=== PATIENT | male | born 1940 | race Caucasian/White ===

== ENCOUNTER → 2018-01-04 | Outpatient (CLI) | payer MEDICARE ==
[2018-01-04 11:05] LABS: BASO % 0.4 % (0.0-1.0); EOS # 0.1 10^3/uL (0.0-0.50); HEMATOCRIT 38.9 % (42.0-52.0); HEMOGLOBIN 13.2 g/dl (14.0-18.0); IMMATURE GRANULOCYTE % 0.2 % (0-3.0); LYMPH # 0.6 10^3/uL (1.5-4.5); LYMPH % 13.2 % (24.0-44.0); MEAN CORPUSCULAR HEMOGLOBIN 30.7 pg (27.0-33.0); MEAN CORPUSCULAR HGB CONC 33.9 g/dl (32.0-36.5); MEAN CORPUSCULAR VOLUME 90.5 fl (80.0-96.0); MONO # 0.5 10^3/uL (0.0-0.8); MONO % 10.6 % (0.0-5.0); NEUTROPHILS # 3.4 10^3/uL (1.8-7.7); NEUTROPHILS % 73.6 % (36.0-66.0); PLATELET COUNT, AUTOMATED 167 10^3/uL (150-450); RED CELL DISTRIBUTION WIDTH 14.6 % (11.5-14.5); WHITE BLOOD COUNT 4.6 10^3/uL (4.0-10.0)
[2018-01-04 11:13] LABS: APPEARANCE, URINE CLEAR (CLEAR); BACTERIA, URINE AUTO NEGATIVE (NEGATIVE); BILIRUBIN, URINE AUTO NEGATIVE (NEGATIVE); BLOOD, URINE BLOOD NEGATIVE (NEGATIVE); COLOR, URINE YELLOW (YELLOW); GLUCOSE, URINE (UA) AUTO NEGATIVE (NEGATIVE); KETONE, URINE AUTO NEGATIVE (NEGATIVE); LEUKOCYTE ESTERASE, URINE AUTO NEGATIVE (NEGATIVE); NITRITE, URINE AUTO NEGATIVE (NEGATIVE); PROTEIN, URINE AUTO NEGATIVE (NEGATIVE); RBC, URINE AUTO 1 /HPF (0-3); SQUAMOUS EPITHELIAL CELL UR AU 0 /HPF (0-6); UROBILINOGEN, URINE AUTO 0.2 mg/dL (0.0-2.0); WBC, URINE AUTO 0 /HPF (0-3)
[2018-01-04 11:33] LABS: ALBUMIN 3.8 GM/DL (3.2-5.2); ALBUMIN/GLOBULIN RATIO 1.03 (1.00-1.93); ALKALINE PHOSPHATASE 59 U/L (45-117); ALT/SGPT 23 U/L (12-78); ANION GAP 7 MEQ/L (8-16); AST/SGOT 28 U/L (7-37); BILIRUBIN,TOTAL 0.4 MG/DL (0.2-1.0); BLOOD UREA NITROGEN 15 MG/DL (7-18); CALCIUM LEVEL 8.7 MG/DL (8.8-10.2); CARBON DIOXIDE LEVEL 27 MEQ/L (21-32); CHLORIDE LEVEL 108 MEQ/L (98-107); CHOLESTEROL LEVEL 103 MG/DL (<200); CHOLESTEROL RISK RATIO 2.452 (<5); CPK CREATINE PHOSPHOKINASE 78 U/L (39-308); CREATININE FOR GFR 0.92 MG/DL (0.70-1.30); FREE T4 1.04 NG/DL (0.76-1.46); GLOMERULAR FILTRATION RATE > 60.0 (>42); GLUCOSE, FASTING 107 MG/DL (70-100); HDL CHOLESTEROL 42 MG/DL (>40); LDL CHOLESTEROL 52.8 MG/DL (<100); NON-HDL-C 61 MG/DL; POTASSIUM SERUM 4.2 MEQ/L (3.5-5.1); SODIUM LEVEL 142 MEQ/L (136-145); TOTAL PROTEIN 7.5 GM/DL (6.4-8.2); TRIGLYCERIDES LEVEL 41 MG/DL (<150)
[2018-01-04 11:39] LABS: CREATININE, URINE 82.5 MG/DL; MALB URINE SIEMENS < 5.0 MG/L
[2018-01-04 11:45] LABS: ESTIMATED AVERAGE GLUCOSE 117 MG/DL (60-110); HEMOGLOBIN A1c 5.7 %
== END ==
LOC: M WUC 09:42
DX: E78.5 Hyperlipidemia, unspecified (principal); R73.9 Hyperglycemia, unspecified; K21.9 Gastro-esophageal reflux disease without esophagitis
CPT/HCPCS: 82550

== ENCOUNTER 2018-02-06 09:20 | Day surgery (SDC) | payer MEDICARE ==
[2018-02-06] MEDS: NS 1,000 ML IV ×2 (10:00)
[2018-02-06] MEDS ORDERED: PROPOFOL 200 MG/20 ML VIAL As Ordered ×2 (10:59)
[2018-02-06] MEDS ORDERED: LIDOCAINE 2% INJ 100 MG/5 ML SDV (FOR ANES.) As Ordered ×2 (10:59)
== END 2018-02-06 12:04 | disposition home or self-care (01) ==
LOC: M OPP 09:20
DX: Z12.11 Encounter for screening for malignant neoplasm of colon (principal); Z86.010 Personal history of colon polyps; D12.0 Benign neoplasm of cecum; K64.8 Other hemorrhoids; K57.30 Diverticulosis of large intestine without perforation or abscess without bleeding; R10.13 Epigastric pain; R11.0 Nausea; K21.9 Gastro-esophageal reflux disease without esophagitis; K29.70 Gastritis, unspecified, without bleeding; E78.5 Hyperlipidemia, unspecified; M19.90 Unspecified osteoarthritis, unspecified site; R06.83 Snoring; F41.9 Anxiety disorder, unspecified; F32.9 Major depressive disorder, single episode, unspecified; Z85.46 Personal history of malignant neoplasm of prostate; Z96.652 Presence of left artificial knee joint; F17.210 Nicotine dependence, cigarettes, uncomplicated; Z88.0 Allergy status to penicillin; Z79.82 Long term (current) use of aspirin; Z79.899 Other long term (current) drug therapy; Z80.9 Family history of malignant neoplasm, unspecified
CPT/HCPCS: 45385

== ENCOUNTER 2021-03-19 10:51 | Emergency (ER) | payer MEDICARE ==
[~2021-03-19] VITALS: Ht 182.9 cm; Wt 79.8 kg
[~2021-03-19 10:51] MED LIST: ASPI81TA86 PO; ATOR80TA59 PO; HYDR-3363 PO; LORA0.5T5 PO; MULT1TAB8 PO; OMEP1CAP73 PO; SERT50TA29 PO; VITATAB11 PO; VITATAB64 PO
--- NOTE | 2021-03-19 11:56 | REP ---
INDICATION: FALL/PAIN COMPARISON: 07/03/2011 TECHNIQUE: Internal rotation, external rotation, and Y view. 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 No evidence for acute fracture or dislocation of the shoulder. Minimally displaced fractures along the posterior aspect of the 3rd and 4th ribs identified.. IMPRESSION: 1. Posterior right 3rd and 4th rib fractures. 2. Shoulder demonstrates arthritic changes without acute fracture or dislocation. <Electronically signed by Ti Cisneros > 03/19/21 [id number]
--- NOTE | 2021-03-19 11:59 | REP ---
INDICATION: FALL/PAIN COMPARISON: None. TECHNIQUE: Frontal view of the chest with four views of the right hemithorax. FINDINGS: Mildly displaced posterior right 3rd and 4th rib fractures are identified. Mildly displaced lateral right 5th and 6th rib fractures are also identified. Frontal view of the chest demonstrates no consolidation/contusion and no definite pneumothorax. IMPRESSION: Multiple mildly displaced right rib fractures. No obvious pulmonary consolidation/contusion, effusion, or definite pneumothorax. <Electronically signed by Ti Cisneros > 03/19/21 [id number]
[2021-03-19] MEDS ORDERED: PERC5TAB12 PO (12:34)
[2021-03-19] MEDS ORDERED: PERCOCET 5MG/325MG TAB PO ONE (12:35)
[2021-03-19 12:40] VITALS: BP 152/69
--- NOTE | 2021-03-20 07:46 | ED PDOC ---
Post-Departure Follow-Up dr bishop faxed formal report of rib films for fu Spike Dumont MD Mar 20, 2021 07:45
== END 2021-03-19 12:54 | disposition home or self-care (01) ==
LOC: M ED 10:51
DX: S22.41XA Multiple fractures of ribs, right side, initial encounter for closed fracture (principal); W07.XXXA Fall from chair, initial encounter; Y92.9 Unspecified place or not applicable; Y93.9 Activity, unspecified; Y99.9 Unspecified external cause status; I10 Essential (primary) hypertension; K21.9 Gastro-esophageal reflux disease without esophagitis; F17.200 Nicotine dependence, unspecified, uncomplicated; Z79.82 Long term (current) use of aspirin; Z88.0 Allergy status to penicillin; Z79.899 Other long term (current) drug therapy

== ENCOUNTER 2022-06-24 12:28 | Emergency (ER) | payer MEDICARE ==
[~2022-06-24] VITALS: Ht 182.9 cm; Wt 80.7 kg
[~2022-06-24 12:28] MED LIST changes: +PERC5TAB12 PO
[2022-06-24] MEDS ORDERED: methylPREDNISolone 125MG 2ML VIAL IM ONE (13:45)
[2022-06-24] MEDS ORDERED: PRED20TA PO (13:45)
[2022-06-24 14:45] VITALS: BP 113/70
== END 2022-06-24 14:45 | disposition home or self-care (01) ==
LOC: M ED 12:28
DX: R21 Rash and other nonspecific skin eruption (principal)
CPT/HCPCS: 96372; 99283; J2930

== ENCOUNTER → 2023-10-28 | Outpatient (REF) | payer MEDICARE, BC ==
[~2023-10-28] MED LIST changes: +ASPI-655 PO; +FERR240T PO; +LORA1TAB23 PO; +PRED20TA PO; +VITA500045 PO
== END ==
LOC: M LAB REF 10-27 13:24
PROVIDERS: ATTEND Internal Medicine Medical Oncology
DX: R77.9 Abnormality of plasma protein, unspecified (principal)

== ENCOUNTER → 2023-12-11 | Outpatient (CLI) | payer MEDICARE ==
[~2023-12-11] MED LIST changes: +ATIV1TAB10 PO; +B-12100010 PO; +PROHANCE 279.3MG/ML 15ML VIAL As Ordered ONE
== END ==
LOC: M RAD 13:36
PROVIDERS: ATTEND Specialist
DX: J32.9 Chronic sinusitis, unspecified (principal)
CPT/HCPCS: 70553; A9576

== ENCOUNTER 2024-01-14 06:15 | Day surgery (SDC) | payer MEDICARE ==
[~2024-01-14] VITALS: Ht 182.9 cm; Wt 68.1 kg
[~2024-01-14 06:15] MED LIST changes: -PROHANCE 279.3MG/ML 15ML VIAL As Ordered ONE
[2024-01-14] MEDS ORDERED: LR 1,000 ML IV SCH ×4 (06:25→09:25)
[2024-01-14] MEDS ORDERED: propofoL 200 MG/20 ML VIAL As Ordered ONE (07:17)
[2024-01-14] MEDS ORDERED: LIDOCAINE 2% 100MG/5ML SDV (FOR ANES.) As Ordered ONE (07:17)
[2024-01-14] MEDS ORDERED: ONDANSETRON 4MG 2ML VIAL As Ordered ONE (07:18)
[2024-01-14] MEDS ORDERED: ROCURONIUM BROMIDE 50MG/5ML VIAL As Ordered ONE (07:18)
[2024-01-14] MEDS ORDERED: ACETAMINOPHEN 1000MG 100ML IV BAG As Ordered ONE (07:19)
[2024-01-14] MEDS ORDERED: fentaNYL 100 MCG/2 ML INJECTION As Ordered ONE (07:20)
[2024-01-14] MEDS ORDERED: SUGAMMADEX SODIUM 500 MG/5 ML VIAL (BRIDION) As Ordered ONE (07:52)
[2024-01-14] MEDS ORDERED: METOCLOPRAMIDE INJ 10MG/2ML VIAL IV PRN (08:10)
[2024-01-14] MEDS ORDERED: diphenhydrAMINE 50MG/ML VIAL IV PRN (08:10)
[2024-01-14] MEDS ORDERED: ONDANSETRON 4MG 2ML VIAL IV PRN (08:10)
[2024-01-14] MEDS ORDERED: fentaNYL 100 MCG/2 ML INJECTION IV PRN (08:10)
[2024-01-14] MEDS ORDERED: oxyCODONE 5MG TAB PO PRN (08:10)
[2024-01-14] MEDS ORDERED: HYDROMORPHONE HCL 0.5 MG/ 0.5 ML SYRINGE IV PRN (08:10)
[2024-01-14] MEDS ORDERED: MEPERIDINE 25 MG/ML 1ML VIAL IV PRN (08:10)
[2024-01-14 08:55] VITALS: BP 148/70; TEMP 97.2; O2SAT 94
[2024-01-14] MEDS ORDERED: HYDROcodone/APAP LIQUID 7.5-325MG 15ML UDC (LORTAB ELIXIR) PO PRN (09:25)
== END 2024-01-14 09:20 | disposition home or self-care (01) ==
LOC: M SDC 06:15
PROVIDERS: ATTEND Otolaryngology
DX: C32.1 Malignant neoplasm of supraglottis (principal); F17.218 Nicotine dependence, cigarettes, with other nicotine-induced disorders; I10 Essential (primary) hypertension; E78.5 Hyperlipidemia, unspecified; K21.9 Gastro-esophageal reflux disease without esophagitis; D64.9 Anemia, unspecified; F41.9 Anxiety disorder, unspecified; F32.A Depression, unspecified; Z85.46 Personal history of malignant neoplasm of prostate; Z79.899 Other long term (current) drug therapy; Z79.82 Long term (current) use of aspirin; Z88.0 Allergy status to penicillin
CPT/HCPCS: 31536; 88305; J0131; J1100; J2405; J3010

== ENCOUNTER → 2024-02-14 | Day surgery (SDC) | payer MEDICARE ==
[~2024-02-14] VITALS: Ht 182.9 cm; Wt 68.4 kg
[~2024-02-14] MED LIST changes: +LIDOCAINE 2% 100MG/5ML SDV (FOR ANES.) As Ordered ONE; +LR 1,000 ML IV SCH; +ceFAZolin SOD 2 GM in IV 1 EA IV ONE; +fentaNYL 100 MCG/2 ML INJECTION As Ordered ONE; +propofoL 200 MG/20 ML VIAL As Ordered ONE
[2024-02-14 11:39] VITALS: BP 150/78; TEMP 97.4; O2SAT 98
== END | disposition home or self-care (01) ==
LOC: M SDC 11:04
PROVIDERS: ATTEND Surgery
DX: Z53.09 Procedure and treatment not carried out because of other contraindication (principal)

== ENCOUNTER → 2024-03-10 | Outpatient (CLI) | payer MEDICARE ==
[~2024-03-10] MED LIST changes: +LIDOCAINE 1% MDV 20ML VIAL As Ordered ONE; -LIDOCAINE 2% 100MG/5ML SDV (FOR ANES.) As Ordered ONE; -LR 1,000 ML IV SCH; -ceFAZolin SOD 2 GM in IV 1 EA IV ONE; -fentaNYL 100 MCG/2 ML INJECTION As Ordered ONE; -propofoL 200 MG/20 ML VIAL As Ordered ONE
[2024-03-10 11:05] VITALS: TEMP 97.5
[2024-03-10 11:46] LABS: BASO % 0.5 % (0.0-1.0); EOS # 0.3 10^3/uL (0.0-0.5); EOS % 3.9 % (0.0-3.0); HEMOGLOBIN 9.9 g/dl (13.5-17.5); LYMPH # 0.5 10^3/uL (1.5-5.0); LYMPH % 7.5 % (24.0-44.0); MEAN CORPUSCULAR HEMOGLOBIN 29.7 pg (27.0-33.0); MEAN CORPUSCULAR VOLUME 90.1 fl (80.0-96.0); MONO # 0.7 10^3/uL (0.0-0.8); MONO % 11.3 % (2.0-8.0); NEUTROPHILS # 4.9 10^3/uL (1.5-8.5); NEUTROPHILS % 76.3 % (36.0-66.0); PLATELET COUNT, AUTOMATED 179 10^3/uL (150-450); RED BLOOD COUNT 3.33 10^6/uL (4.30-6.10); WHITE BLOOD COUNT 6.4 10^3/uL (4.0-10.0)
[2024-03-10 12:32] VITALS: BP 151/84; O2SAT 95
== END ==
LOC: M IRPRO 10:53
PROVIDERS: ATTEND Specialist
DX: C85.90 Non-Hodgkin lymphoma, unspecified, unspecified site (principal)

== ENCOUNTER → 2024-05-08 | Outpatient (CLI) | payer MEDICARE ==
[~2024-05-08] MED LIST changes: +GASTROGRAFIN SOLUTION 30ML As Ordered ONE; +ISOVUE-370 76% 100ML VIAL As Ordered ONE; -LIDOCAINE 1% MDV 20ML VIAL As Ordered ONE
== END ==
LOC: M RAD 12:13
PROVIDERS: ATTEND Specialist
DX: C85.90 Non-Hodgkin lymphoma, unspecified, unspecified site (principal); R91.8 Other nonspecific abnormal finding of lung field; J98.11 Atelectasis; I71.43 Infrarenal abdominal aortic aneurysm, without rupture; R19.09 Other intra-abdominal and pelvic swelling, mass and lump
CPT/HCPCS: 71260; 74177; Q9963; Q9967

== ENCOUNTER 2024-05-31 18:53 | Inpatient (IN) | payer MEDICARE ==
[~2024-05-31] VITALS: Ht 175.3 cm; Wt 67.4 kg
[~2024-05-31 18:53] MED LIST changes: -GASTROGRAFIN SOLUTION 30ML As Ordered ONE; -ISOVUE-370 76% 100ML VIAL As Ordered ONE; +PRED50TA PO
[2024-05-31 19:40] LABS: VENOUS BASE EXCESS -2.2 (-2.0-2.0); VENOUS HCO3 20.7 MMOL/L (23.0-27.0); VENOUS O2 SATURATION 84.9 % (60.0-80.0); VENOUS PARTIAL PRESSURE O2 46.8 mmHg (30.0-50.0); VENOUS PH 7.471 UNITS (7.330-7.430); VENOUS STANDARD HCO3 22.5 MMOL/L; VENOUS TOTAL CO2 21.6 MMOL/L (24.0-28.0)
[2024-05-31] MEDS: ACETAMINOPHEN TAB 650MG DOSE (2X325MG) PO ONE (19:48)
[2024-05-31 19:50] LABS: BASO % 0.2 % (0.0-1.0); EOS % 0.1 % (0.0-3.0); HEMOGLOBIN 9.4 g/dl (13.5-17.5); LYMPH # 0.2 10^3/uL (1.5-5.0); LYMPH % 1.4 % (24.0-44.0); MEAN CORPUSCULAR HEMOGLOBIN 29.7 pg (27.0-33.0); MEAN CORPUSCULAR HGB CONC 33.6 g/dl (32.0-36.5); MEAN CORPUSCULAR VOLUME 88.6 fl (80.0-96.0); MONO # 1.4 10^3/uL (0.0-0.8); MONO % 11.7 % (2.0-8.0); NEUTROPHILS # 10.4 10^3/uL (1.5-8.5); NEUTROPHILS % 85.7 % (36.0-66.0); PLATELET COUNT, AUTOMATED 162 10^3/uL (150-450); RED BLOOD COUNT 3.16 10^6/uL (4.30-6.10); WHITE BLOOD COUNT 12.2 10^3/uL (4.0-10.0)
[2024-05-31] MEDS: LevoFLOXacin IV 750 MG in IV 1 EA IV ONE (19:52)
[2024-05-31 20:11] LABS: THYROID STIMULATING HORMONE 4.077 uIU/ML (0.55-4.78)
[2024-05-31 20:17] LABS: ALBUMIN 2.4 G/DL (3.2-5.2); BILIRUBIN,DIRECT 0.1 MG/DL (<0.4); BILIRUBIN,TOTAL 0.4 MG/DL (0.3-1.2); CALCIUM LEVEL 8.9 MG/DL (8.3-10.6); CREATININE FOR GFR 1.41 MG/DL (0.70-1.30); GLOMERULAR FILTRATION RATE 51.4 (>35); POTASSIUM SERUM 4.1 MMOL/L (3.5-5.1); TOTAL PROTEIN 5.9 G/DL (5.7-8.2)
[2024-05-31] MEDS: NS 2,100 ML in IV 1 EA IV ONE (21:02)
[2024-05-31] MEDS ORDERED: ASPI81TA26 PO (23:05)
[2024-05-31] MEDS ORDERED: HOME MED LIST COMPLETE! XX SCH (23:10)
[2024-05-31 23:34] LABS: PROCALCITONIN 0.2 ng/ml
[2024-06-01] VITALS (9 sets, daily range): BP systolic 90–137; BP diastolic 42–65; TEMP 97.1–102; O2SAT 93–97
[2024-06-01] MEDS: ACETAMINOPHEN TAB 650MG DOSE (2X325MG) PO PRN (01:31)
[2024-06-01] MEDS: NS 1,000 ML IV SCH (01:41)
[2024-06-01 06:10] LABS: HEMOGLOBIN 8.9 g/dl (13.5-17.5); MEAN CORPUSCULAR HGB CONC 31.8 g/dl (32.0-36.5); MEAN CORPUSCULAR VOLUME 91.2 fl (80.0-96.0); PLATELET COUNT, AUTOMATED 170 10^3/uL (150-450); RED BLOOD COUNT 3.07 10^6/uL (4.30-6.10); WHITE BLOOD COUNT 10.7 10^3/uL (4.0-10.0)
[2024-06-01] MEDS: HEPARIN SOD (PORCINE) 5000UNITS/ML 1ML VIAL/SYRINGE SC SCH (06:22)
[2024-06-01 06:43] LABS: ALBUMIN 1.9 G/DL (3.2-5.2); BILIRUBIN,TOTAL 0.3 MG/DL (0.3-1.2); CALCIUM LEVEL 7.9 MG/DL (8.3-10.6); CREATININE FOR GFR 1.4 MG/DL (0.70-1.30); GLOMERULAR FILTRATION RATE 51.8 (>35); TOTAL PROTEIN 5.2 G/DL (5.7-8.2)
[2024-06-01] MEDS: DOCUSATE SODIUM 100MG CAPSULE PO SCH (09:00)
[2024-06-01] MEDS: ASPIRIN 81MG ENTERIC TABLET PO SCH (09:00)
[2024-06-01] MEDS ORDERED: LORazepam 0.5 MG TAB PO PRN (10:40)
[2024-06-01] MEDS: ATORVASTATIN 20 MG TAB PO SCH (12:09)
[2024-06-01] MEDS: SERTRALINE HCL 50 MG TAB PO SCH (12:10)
[2024-06-01] MEDS: OMEPRAZOLE 20MG CAP PO SCH (12:10)
[2024-06-01] MEDS: NICOTINE 21MG/24HR 1 EA TRANSDERMAL TD PRN (12:11)
[2024-06-01] MEDS: MOM 30ML SUSPENSION UDC PO PRN (12:11)
[2024-06-01] MEDS: NS 1,000 ML IV ONE (12:22)
[2024-06-01 13:44] LABS: MAGNESIUM LEVEL 1.8 MG/DL (1.8-2.4)
[2024-06-01] MEDS ORDERED: LevoFLOXacin IV 750 MG in IV 1 EA IV SCH (20:00)
[2024-06-01] MEDS: MEGESTROL 40MG TAB PO SCH (23:52)
[2024-06-02] VITALS (9 sets, daily range): BP systolic 102–149; BP diastolic 55–73; TEMP 99–101.2; O2SAT 93–99
[2024-06-02] MEDS: MAG SULF 1GM/100ML (MAG RUN) 1 GM in IV 1 EA IV ONE (02:20)
[2024-06-02] MEDS: MEGESTROL 400MG 10ML SUSP ORAL SYRINGE *DRAW UP EXACT DOSE PO SCH (12:42)
[2024-06-02 15:28] LABS: BASO % 0.2 % (0.0-1.0); EOS % 0.2 % (0.0-3.0); HEMATOCRIT 27.5 % (42.0-52.0); HEMOGLOBIN 9.1 g/dl (13.5-17.5); LYMPH # 0.3 10^3/uL (1.5-5.0); LYMPH % 2.8 % (24.0-44.0); MEAN CORPUSCULAR HEMOGLOBIN 29.7 pg (27.0-33.0); MEAN CORPUSCULAR HGB CONC 33.1 g/dl (32.0-36.5); MEAN CORPUSCULAR VOLUME 89.9 fl (80.0-96.0); MONO # 0.9 10^3/uL (0.0-0.8); MONO % 9.2 % (2.0-8.0); NEUTROPHILS # 8.1 10^3/uL (1.5-8.5); NEUTROPHILS % 86.7 % (36.0-66.0); PLATELET COUNT, AUTOMATED 192 10^3/uL (150-450); RED BLOOD COUNT 3.06 10^6/uL (4.30-6.10); WHITE BLOOD COUNT 9.3 10^3/uL (4.0-10.0)
[2024-06-02 15:56] LABS: BLOOD UREA NITROGEN 17 MG/DL (9-23); CALCIUM LEVEL 8.3 MG/DL (8.3-10.6); CARBON DIOXIDE LEVEL 19 MMOL/L (20-31); CHLORIDE LEVEL 106 MMOL/L (98-107); GLOMERULAR FILTRATION RATE > 60.0 (>35); GLUCOSE, FASTING 119 MG/DL (74-106); POTASSIUM SERUM 4.1 MMOL/L (3.5-5.1); SODIUM LEVEL 132 MMOL/L (136-145)
[2024-06-02] MEDS ORDERED: LevoFLOXacin IV 750 MG in IV 1 EA IV SCH (20:00)
[2024-06-02] MEDS: LevoFLOXacin 750 MG TABLET PO SCH (20:48)
[2024-06-03 03:07] VITALS: BP 115/65; TEMP 97.1; O2SAT 95
[2024-06-03 08:20] VITALS: BP 137/70; TEMP 98.4; O2SAT 95
[2024-06-03 12:02] VITALS: BP 116/58; TEMP 99.6; O2SAT 95
[2024-06-03 16:07] VITALS: BP 121/69; TEMP 99.1; O2SAT 94
[2024-06-03 16:51] VITALS: BP 136/76; TEMP 97.3; O2SAT 95
[2024-06-03 19:26] VITALS: BP 127/73; TEMP 100; O2SAT 94
[2024-06-04 00:09] VITALS: BP 131/72; TEMP 99.1; O2SAT 93
[2024-06-04 04:00] VITALS: BP 112/62; TEMP 98.9; O2SAT 92
[2024-06-04 06:08] LABS: BASO % 0.1 % (0.0-1.0); EOS % 0.3 % (0.0-3.0); HEMATOCRIT 28.1 % (42.0-52.0); HEMOGLOBIN 9.2 g/dl (13.5-17.5); LYMPH # 0.3 10^3/uL (1.5-5.0); LYMPH % 2.9 % (24.0-44.0); MEAN CORPUSCULAR HEMOGLOBIN 29.2 pg (27.0-33.0); MEAN CORPUSCULAR HGB CONC 32.7 g/dl (32.0-36.5); MEAN CORPUSCULAR VOLUME 89.2 fl (80.0-96.0); MONO # 0.9 10^3/uL (0.0-0.8); NEUTROPHILS # 7.7 10^3/uL (1.5-8.5); NEUTROPHILS % 85.8 % (36.0-66.0); PLATELET COUNT, AUTOMATED 219 10^3/uL (150-450); RED BLOOD COUNT 3.15 10^6/uL (4.30-6.10); WHITE BLOOD COUNT 8.9 10^3/uL (4.0-10.0)
[2024-06-04 06:28] LABS: CALCIUM LEVEL 8.2 MG/DL (8.3-10.6); CREATININE FOR GFR 1.25 MG/DL (0.70-1.30); MAGNESIUM LEVEL 1.8 MG/DL (1.8-2.4); POTASSIUM SERUM 3.7 MMOL/L (3.5-5.1)
[2024-06-04] MEDS ORDERED: LEVO1TAB40 PO (11:12)
[2024-06-04] MEDS ORDERED: PROBCAP14 PO (11:18)
[2024-06-04 12:00] VITALS: BP 115/66; TEMP 98.7; O2SAT 94
== END 2024-06-04 13:22 | disposition home health service (06) | DRG 872 ==
LOC: M ED 18:53 → EDBD 18:53 → M ED INP 22:53 → M PCU 06-01 00:18 → M MSPAV 06-03 16:50
PROVIDERS: ADMIT Family Medicine; ATTEND Student in an Organized Health Care Education/Training Program
DX: A41.9 Sepsis, unspecified organism (principal); C85.90 Non-Hodgkin lymphoma, unspecified, unspecified site; N39.0 Urinary tract infection, site not specified; E78.5 Hyperlipidemia, unspecified; F32.A Depression, unspecified; N18.9 Chronic kidney disease, unspecified; K21.9 Gastro-esophageal reflux disease without esophagitis; F17.210 Nicotine dependence, cigarettes, uncomplicated; F41.9 Anxiety disorder, unspecified; I12.9 Hypertensive chronic kidney disease with stage 1 through stage 4 chronic kidney disease, or unspecified chronic kidney disease; R54 Age-related physical debility; B96.29 Other Escherichia coli [E. coli] as the cause of diseases classified elsewhere; Z88.0 Allergy status to penicillin; Z79.899 Other long term (current) drug therapy; Z79.82 Long term (current) use of aspirin

== ENCOUNTER 2024-07-08 06:05 | Inpatient (IN) | payer MEDICARE ==
[~2024-07-08] VITALS: Ht 182.9 cm; Wt 62.2 kg
[2024-07-08] VITALS (29 sets, daily range): BP systolic 115–130; BP diastolic 61–72; TEMP 98.1–101.7; O2SAT 54–100
[~2024-07-08 06:05] MED LIST changes: +ASPI81TA26 PO; +LEVO1TAB40 PO; +ONDA-84 PO; +PROBCAP14 PO; +PROC10TA5 PO
[2024-07-08] MEDS: ASPIRIN 300 MG SUPP PR ONE (06:25)
[2024-07-08] MEDS: ACETAMINOPHEN *IV* 1,000 MG in IV 1 EA IV ONE (06:25)
[2024-07-08] MEDS: cefTRIAXone SOD 2 GM in D5W MINI-BAG PLUS 50 ML IV ONE (06:30)
[2024-07-08] MEDS: NS 1,000 ML IV ONE (06:30)
[2024-07-08] MEDS: NS 1,000 ML in IV 1 EA IV ONE (06:35)
[2024-07-08 07:10] LABS: BASO % 1.2 % (0.0-1.0); EOS % 2.4 % (0.0-3.0); HEMATOCRIT 29.9 % (42.0-52.0); HEMOGLOBIN 9.7 g/dl (13.5-17.5); LYMPH # 0.1 10^3/uL (1.5-5.0); LYMPH % 9.6 % (24.0-44.0); MEAN CORPUSCULAR HEMOGLOBIN 29.5 pg (27.0-33.0); MEAN CORPUSCULAR HGB CONC 32.4 g/dl (32.0-36.5); MEAN CORPUSCULAR VOLUME 90.9 fl (80.0-96.0); MONO % 2.4 % (2.0-8.0); NEUTROPHILS % 83.2 % (36.0-66.0); PLATELET COUNT, AUTOMATED 175 10^3/uL (150-450); RED BLOOD COUNT 3.29 10^6/uL (4.30-6.10)
[2024-07-08 07:26] LABS: PROCALCITONIN 0.44 ng/ml
[2024-07-08 07:28] LABS: ALBUMIN 2.9 G/DL (3.2-5.2); BILIRUBIN,DIRECT 0.2 MG/DL (<0.4); BILIRUBIN,TOTAL 0.5 MG/DL (0.3-1.2); CALCIUM LEVEL 9.6 MG/DL (8.3-10.6); CREATININE FOR GFR 1.39 MG/DL (0.70-1.30); GLOMERULAR FILTRATION RATE 52.2 (>35); TOTAL PROTEIN 6.6 G/DL (5.7-8.2)
[2024-07-08 07:30] LABS: NEUTROPHILS # 0.7 10^3/uL (1.5-8.5)
[2024-07-08 07:32] LABS: WHITE BLOOD COUNT 0.8 10^3/uL (4.0-10.0)
[2024-07-08] MEDS ORDERED: ONDA-84 PO (07:52)
[2024-07-08] MEDS ORDERED: VITA1CAP25 PO (07:52)
[2024-07-08] MEDS ORDERED: ATIV1TAB10 PO (07:52)
[2024-07-08] MEDS ORDERED: PROC10TA5 PO (07:52)
[2024-07-08] MEDS ORDERED: FERR32TA PO (07:52)
[2024-07-08] MEDS ORDERED: HOME MED LIST COMPLETE! XX SCH (07:55)
[2024-07-08] MEDS ORDERED: ISOVUE-370 76% 100ML VIAL As Ordered ONE (07:58)
[2024-07-08] MEDS ORDERED: MEROPENEM INJ 2 GM in NS 100 ML IV STA (09:58)
[2024-07-08] MEDS: LR 1,000 ML IV ONE (10:37)
[2024-07-08] MEDS: MEROPENEM INJ 1 GM in IV 1 EA IV ONE ×2 (10:37→12:13)
[2024-07-08] MEDS: CEFTAROLINE FOSAMIL 600 MG in D5W MINI-BAG PLUS 50 ML IV STA (11:09)
[2024-07-08] MEDS ORDERED: LORazepam 2 MG/ML 1ML VIAL As Ordered ONE (11:54)
[2024-07-08] MEDS: LORazepam 2 MG/ML 1ML VIAL IM STA (11:59)
[2024-07-08 12:12] LABS: ABG BASE EXCESS -8.2 (-2.0-2.0); ABG HCO3 16.9 MMOL/L (22.0-26.0); ABG O2 SATURATION 99.3 % (95.0-99.0); ABG PARTIAL PRESSURE CO2 32.8 mmHg (35.0-45.0); ABG PARTIAL PRESSURE O2 239.5 mmHg (75.0-100.0); ABG STANDARD HCO3 17.9 MMOL/L. (22.0-26.0); ABG TOTAL CO2 17.9 MMOL/L (23.0-31.0); ABG pH (ARTERIAL) 7.329 UNITS (7.350-7.450)
[2024-07-08] MEDS: ONDANSETRON 4MG 2ML VIAL IV ONE (12:13)
[2024-07-08] MEDS: LORazepam 2 MG/ML 1ML VIAL IV STA ×2 (12:30→12:39)
[2024-07-08] MEDS: levETIRAcetam INJection 1,000 MG in D5W 100 ML IV ONE (12:30)
[2024-07-08] MEDS ORDERED: PHENYTOIN IV ONE (12:30)
[2024-07-08] MEDS ORDERED: NS IV ONE (12:30)
[2024-07-08] MEDS ORDERED: LORazepam 2 MG/ML 1ML VIAL IM STA ×2 (12:30→12:39)
[2024-07-08] MEDS ORDERED: diazePAM 10MG/2ML SYRINGE As Ordered ONE (12:40)
[2024-07-08] MEDS: diazePAM 10MG/2ML SYRINGE IV ONE (12:41)
[2024-07-08 20:08] LABS: VENOUS BASE EXCESS -9.6 (-2.0-2.0); VENOUS HCO3 21.5 MMOL/L (23.0-27.0); VENOUS O2 SATURATION 80.1 % (60.0-80.0); VENOUS PARTIAL PRESSURE CO2 76.9 mmHg (38.0-50.0); VENOUS PARTIAL PRESSURE O2 61.8 mmHg (30.0-50.0); VENOUS PH 7.064 UNITS (7.330-7.430); VENOUS STANDARD HCO3 16.5 MMOL/L; VENOUS TOTAL CO2 23.8 MMOL/L (24.0-28.0)
[2024-07-08] MEDS: CEFTAROLINE FOSAMIL 600 MG in D5W MINI-BAG PLUS 50 ML IV SCH (20:15)
[2024-07-08] MEDS ORDERED: MEROPENEM INJ 2 GM in NS 100 ML IV SCH (21:00)
[2024-07-08] MEDS: MEROPENEM INJ 1 GM in IV 1 EA IV SCH ×2 (22:11→22:49)
[2024-07-08 22:59] LABS: VENOUS BASE EXCESS -4.6 (-2.0-2.0); VENOUS O2 SATURATION 65.2 % (60.0-80.0); VENOUS PARTIAL PRESSURE CO2 62.5 mmHg (38.0-50.0); VENOUS PARTIAL PRESSURE O2 39.5 mmHg (30.0-50.0); VENOUS PH 7.203 UNITS (7.330-7.430); VENOUS STANDARD HCO3 20.1 MMOL/L
[2024-07-09] VITALS (23 sets, daily range): BP systolic 88–126; BP diastolic 52–66; TEMP 97.5–100.6; O2SAT 96–100
[2024-07-09] MEDS: LACTATED RINGER'S 1000 ML IV ONE (04:03)
[2024-07-09 04:41] LABS: HEMOGLOBIN 9.9 g/dl (13.5-17.5); MEAN CORPUSCULAR HEMOGLOBIN 29.6 pg (27.0-33.0); MEAN CORPUSCULAR HGB CONC 31.9 g/dl (32.0-36.5); MEAN CORPUSCULAR VOLUME 92.8 fl (80.0-96.0); PLATELET COUNT, AUTOMATED 138 10^3/uL (150-450); RED BLOOD COUNT 3.34 10^6/uL (4.30-6.10)
[2024-07-09] MEDS: LR 1,000 ML IV ONE (04:44)
[2024-07-09 05:26] LABS: ALBUMIN 2.4 G/DL (3.2-5.2); BILIRUBIN,TOTAL 0.4 MG/DL (0.3-1.2); CALCIUM LEVEL 8.9 MG/DL (8.3-10.6); CREATININE FOR GFR 1.4 MG/DL (0.70-1.30); GLOMERULAR FILTRATION RATE 51.8 (>35); MAGNESIUM LEVEL 1.8 MG/DL (1.8-2.4); PHOSPHORUS LEVEL 5.6 MG/DL (2.4-5.1); POTASSIUM SERUM 3.5 MMOL/L (3.5-5.1); TOTAL PROTEIN 6.1 G/DL (5.7-8.2)
[2024-07-09 05:35] LABS: ANISOCYTOSIS 2+; ATYPICAL LYMPH 3 % (0-5); LYMPHOCYTES 19 % (16-44); METAMYELOCYTES 2 % (0-0); MONOCYTES 16 % (0-5); NEUTROPHILS 51 % (28-66); OVALOCYTES 1+; PLATELET ESTIMATE NORMAL (NORMAL); TEAR DROP CELLS 1+
[2024-07-09] MEDS ORDERED: GLUCAGON INJ 1MG VIAL SC PRN (06:15)
[2024-07-09] MEDS ORDERED: GLUCOSE 4 GM CHEW PO PRN (06:15)
[2024-07-09 09:54] LABS: VENOUS BASE EXCESS -5.6 (-2.0-2.0); VENOUS HCO3 21.6 MMOL/L (23.0-27.0); VENOUS O2 SATURATION 54.5 % (60.0-80.0); VENOUS PARTIAL PRESSURE CO2 49.6 mmHg (38.0-50.0); VENOUS PARTIAL PRESSURE O2 33.4 mmHg (30.0-50.0); VENOUS PH 7.257 UNITS (7.330-7.430); VENOUS STANDARD HCO3 19.1 MMOL/L; VENOUS TOTAL CO2 23.1 MMOL/L (24.0-28.0)
[2024-07-09] MEDS: LR 1,000 ML IV SCH (11:23)
[2024-07-09] MEDS: D5W/LR 1,000 ML IV ONE (12:14)
[2024-07-09] MEDS: DEXTROSE 50% 50ML SYRINGE IV PRN (12:14)
[2024-07-09] MEDS ORDERED: PANTOPRAZOLE 40MG VIAL IV SCH (16:40)
[2024-07-09] MEDS: cefTRIAXone SOD 2 GM in D5W MINI-BAG PLUS 50 ML IV SCH (17:35)
[2024-07-09 19:56] LABS: VENOUS BASE EXCESS -1.5 (-2.0-2.0); VENOUS HCO3 21.6 MMOL/L (23.0-27.0); VENOUS O2 SATURATION 98.6 % (60.0-80.0); VENOUS PARTIAL PRESSURE CO2 30.9 mmHg (38.0-50.0); VENOUS PARTIAL PRESSURE O2 137.7 mmHg (30.0-50.0); VENOUS PH 7.462 UNITS (7.330-7.430); VENOUS STANDARD HCO3 23.2 MMOL/L; VENOUS TOTAL CO2 22.5 MMOL/L (24.0-28.0)
[2024-07-09] MEDS: PANTOPRAZOLE 40MG VIAL IV SCH (20:09)
[2024-07-09] MEDS: HEPARIN SOD (PORCINE) 5000UNITS/ML 1ML VIAL/SYRINGE SQ SCH (20:09)
[2024-07-09 21:39] LABS: IMMUNOGLOBULIN A 174.9 MG/DL (40-350); IMMUNOGLOBULIN G 923 MG/DL (650-1600)
[2024-07-10] VITALS (19 sets, daily range): BP systolic 105–131; BP diastolic 57–78; TEMP 99.7–100.6; O2SAT 92–100
[2024-07-10 04:35] LABS: HEMATOCRIT 27.8 % (42.0-52.0); HEMOGLOBIN 9.3 g/dl (13.5-17.5); MEAN CORPUSCULAR HEMOGLOBIN 29.5 pg (27.0-33.0); MEAN CORPUSCULAR HGB CONC 33.5 g/dl (32.0-36.5); MEAN CORPUSCULAR VOLUME 88.3 fl (80.0-96.0); PLATELET COUNT, AUTOMATED 102 10^3/uL (150-450); RED BLOOD COUNT 3.15 10^6/uL (4.30-6.10); WHITE BLOOD COUNT 5.5 10^3/uL (4.0-10.0)
[2024-07-10 05:00] LABS: BILIRUBIN,TOTAL 0.4 MG/DL (0.3-1.2); CALCIUM LEVEL 8.8 MG/DL (8.3-10.6); CREATININE FOR GFR 1.32 MG/DL (0.70-1.30); GLOMERULAR FILTRATION RATE 55.4 (>35); MAGNESIUM LEVEL 1.9 MG/DL (1.8-2.4); PHOSPHORUS LEVEL 4.2 MG/DL (2.4-5.1); POTASSIUM SERUM 3.3 MMOL/L (3.5-5.1); TOTAL PROTEIN 5.5 G/DL (5.7-8.2)
[2024-07-10 05:24] LABS: ANISOCYTOSIS 2+; ATYPICAL LYMPH 3 % (0-5); LYMPHOCYTES 8 % (16-44); METAMYELOCYTES 4 % (0-0); MONOCYTES 15 % (0-5); MYELOCYTES 1 % (0-0); NEUTROPHILS 67 % (28-66)
[2024-07-10 05:25] LABS: PLATELET ESTIMATE DECREASED (NORMAL); TOXIC GRANULATION 1+
[2024-07-10 05:26] LABS: OVALOCYTES 1+; TEAR DROP CELLS 1+
[2024-07-10] MEDS: KCL 10MEQ/100ML SWI (KRUN) 10 MEQ in IV 1 EA IV ONE (06:08)
[2024-07-10] MEDS: cefTRIAXone SOD 2 GM in D5W MINI-BAG PLUS 50 ML IV SCH (06:08)
[2024-07-10 12:52] LABS: CALCIUM LEVEL 8.8 MG/DL (8.3-10.6); CREATININE FOR GFR 1.29 MG/DL (0.70-1.30); GLOMERULAR FILTRATION RATE 56.9 (>35); POTASSIUM SERUM 3.2 MMOL/L (3.5-5.1)
[2024-07-11] VITALS (24 sets, daily range): BP systolic 111–141; BP diastolic 55–81; TEMP 99.9–100.8; O2SAT 93–98
[2024-07-11] MEDS: FAT EMULSION IV 250 ML IV ONE ×2 (02:07→18:54)
[2024-07-11] MEDS: AMINO AC/ELECTROLYTE/DEX/CALC 1,000 ML IV SCH (02:07)
[2024-07-11 04:38] LABS: BASO % 0.2 % (0.0-1.0); HEMATOCRIT 27.2 % (42.0-52.0); HEMOGLOBIN 8.9 g/dl (13.5-17.5); LYMPH # 0.2 10^3/uL (1.5-5.0); LYMPH % 2.2 % (24.0-44.0); MEAN CORPUSCULAR HEMOGLOBIN 29.9 pg (27.0-33.0); MEAN CORPUSCULAR HGB CONC 32.7 g/dl (32.0-36.5); MEAN CORPUSCULAR VOLUME 91.3 fl (80.0-96.0); MONO # 0.8 10^3/uL (0.0-0.8); NEUTROPHILS # 7.3 10^3/uL (1.5-8.5); NEUTROPHILS % 87.4 % (36.0-66.0); RED BLOOD COUNT 2.98 10^6/uL (4.30-6.10); WHITE BLOOD COUNT 8.3 10^3/uL (4.0-10.0)
[2024-07-11 04:55] LABS: ALBUMIN 1.9 G/DL (3.2-5.2); ALKALINE PHOSPHATASE 61 U/L (46-116); ALT/SGPT 27 U/L (7.0-40); AST/SGOT 49 U/L (<34); BILIRUBIN,TOTAL 0.3 MG/DL (0.3-1.2); BLOOD UREA NITROGEN 37 MG/DL (9-23); CARBON DIOXIDE LEVEL 23 MMOL/L (20-31); CHLORIDE LEVEL 118 MMOL/L (98-107); GLOMERULAR FILTRATION RATE > 60.0 (>35); GLUCOSE, FASTING 100 MG/DL (74-106); PHOSPHORUS LEVEL 2.9 MG/DL (2.4-5.1); POTASSIUM SERUM 3.1 MMOL/L (3.5-5.1); SODIUM LEVEL 148 MMOL/L (136-145); TOTAL PROTEIN 5.3 G/DL (5.7-8.2)
[2024-07-11 05:28] LABS: PLATELET COUNT, AUTOMATED 90 10^3/uL (150-450)
[2024-07-11] MEDS: KCL 10MEQ/100ML SWI (KRUN) 10 MEQ in IV 1 EA IV SCH ×2 (06:54→12:54)
[2024-07-11] MEDS ORDERED: D5W/LR 1,000 ML IV SCH (08:20)
[2024-07-11] MEDS: D5W/0.45% SODIUM CHLORIDE 1,000 ML IV SCH (09:00)
[2024-07-11 15:40] LABS: BLOOD UREA NITROGEN 33 MG/DL (9-23); CALCIUM LEVEL 9.1 MG/DL (8.3-10.6); CARBON DIOXIDE LEVEL 24 MMOL/L (20-31); CHLORIDE LEVEL 119 MMOL/L (98-107); CREATININE FOR GFR 1.09 MG/DL (0.70-1.30); GLOMERULAR FILTRATION RATE > 60.0 (>35); GLUCOSE, FASTING 117 MG/DL (74-106); POTASSIUM SERUM 3.7 MMOL/L (3.5-5.1); SODIUM LEVEL 149 MMOL/L (136-145)
[2024-07-11] MEDS: INSULIN LISPRO (NovoLOG) PER UNIT SC SCH (18:00)
[2024-07-11] MEDS: D5W 1,000 ML IV SCH (20:10)
[2024-07-11] MEDS: IPRATROPIUM 0.5MG/ALBUTEROL 2.5MG INH SOL UD 3ML (DUONEB) NEB PRN (20:52)
[2024-07-11] MEDS: ACETAMINOPHEN *IV* 1,000 MG in IV 1 EA IV ONE (23:58)
[2024-07-12] VITALS (39 sets, daily range): BP systolic 90–153; BP diastolic 51–88; TEMP 99–101.3; O2SAT 90–98
[2024-07-12 01:07] LABS: BLOOD UREA NITROGEN 30 MG/DL (9-23); CALCIUM LEVEL 8.6 MG/DL (8.3-10.6); CARBON DIOXIDE LEVEL 23 MMOL/L (20-31); CHLORIDE LEVEL 116 MMOL/L (98-107); CREATININE FOR GFR 0.97 MG/DL (0.70-1.30); GLOMERULAR FILTRATION RATE > 60.0 (>35); GLUCOSE, FASTING 176 MG/DL (74-106); MAGNESIUM LEVEL 1.8 MG/DL (1.8-2.4); POTASSIUM SERUM 3.2 MMOL/L (3.5-5.1); SODIUM LEVEL 144 MMOL/L (136-145)
[2024-07-12] MEDS: MAG SULF 1GM/100ML (MAG RUN) 1 GM in IV 1 EA IV ONE (01:33)
[2024-07-12] MEDS: POTASSIUM PHOSPHATE INJ 20 MMOL in D5W 250 ML IV ONE (01:45)
[2024-07-12] MEDS: KCL 10MEQ/100ML SWI (KRUN) 10 MEQ in IV 1 EA IV SCH (02:43)
[2024-07-12 05:34] LABS: BLOOD UREA NITROGEN 30 MG/DL (9-23); CALCIUM LEVEL 8.8 MG/DL (8.3-10.6); CARBON DIOXIDE LEVEL 21 MMOL/L (20-31); CHLORIDE LEVEL 114 MMOL/L (98-107); CREATININE FOR GFR 0.96 MG/DL (0.70-1.30); GLOMERULAR FILTRATION RATE > 60.0 (>35); GLUCOSE, FASTING 150 MG/DL (74-106); MAGNESIUM LEVEL 2.2 MG/DL (1.8-2.4); PHOSPHORUS LEVEL 3.6 MG/DL (2.4-5.1); POTASSIUM SERUM 3.9 MMOL/L (3.5-5.1); SODIUM LEVEL 143 MMOL/L (136-145)
[2024-07-12 06:04] LABS: HEMATOCRIT 29.5 % (42.0-52.0); HEMOGLOBIN 9.3 g/dl (13.5-17.5); MEAN CORPUSCULAR HEMOGLOBIN 29.6 pg (27.0-33.0); MEAN CORPUSCULAR HGB CONC 31.5 g/dl (32.0-36.5); MEAN CORPUSCULAR VOLUME 93.9 fl (80.0-96.0); RED BLOOD COUNT 3.14 10^6/uL (4.30-6.10); WHITE BLOOD COUNT 6.3 10^3/uL (4.0-10.0)
[2024-07-12 06:21] LABS: PLATELET COUNT, AUTOMATED 70 10^3/uL (150-450)
[2024-07-12 08:00] LABS: ATYPICAL LYMPH 4 % (0-5); EOSINOPHILS 2 % (0-3); LYMPHOCYTES 3 % (16-44); METAMYELOCYTES 2 % (0-0); MONOCYTES 9 % (0-5); NEUTROPHILS 50 % (28-66)
[2024-07-12 08:06] LABS: ANISOCYTOSIS 2+; HYPOCHROMASIA 1+
[2024-07-12 08:07] LABS: PLATELET ESTIMATE DECREASED (NORMAL)
[2024-07-12] MEDS: NYSTATIN 500,000U/5ML SUSP UDC SS SCH (12:00)
[2024-07-12 13:49] LABS: VENOUS BASE EXCESS -2.9 (-2.0-2.0); VENOUS HCO3 21.9 MMOL/L (23.0-27.0); VENOUS O2 SATURATION 55.8 % (60.0-80.0); VENOUS PARTIAL PRESSURE O2 32.5 mmHg (30.0-50.0); VENOUS PH 7.379 UNITS (7.330-7.430); VENOUS STANDARD HCO3 21.4 MMOL/L; VENOUS TOTAL CO2 23.1 MMOL/L (24.0-28.0)
[2024-07-12 15:43] LABS: VENOUS BASE EXCESS -2.4 (-2.0-2.0); VENOUS HCO3 22.2 MMOL/L (23.0-27.0); VENOUS O2 SATURATION 59.3 % (60.0-80.0); VENOUS PARTIAL PRESSURE CO2 37.4 mmHg (38.0-50.0); VENOUS PH 7.391 UNITS (7.330-7.430); VENOUS STANDARD HCO3 21.8 MMOL/L; VENOUS TOTAL CO2 23.3 MMOL/L (24.0-28.0)
[2024-07-12] MEDS: INSULIN LISPRO (NovoLOG) PER UNIT SC SCH (18:00)
[2024-07-12] MEDS: FAT EMULSION IV 250 ML IV ONE (19:56)
[2024-07-12 21:57] LABS: VENOUS BASE EXCESS -1.3 (-2.0-2.0); VENOUS HCO3 22.9 MMOL/L (23.0-27.0); VENOUS O2 SATURATION 81.7 % (60.0-80.0); VENOUS PARTIAL PRESSURE CO2 36.3 mmHg (38.0-50.0); VENOUS PARTIAL PRESSURE O2 49.9 mmHg (30.0-50.0); VENOUS PH 7.418 UNITS (7.330-7.430); VENOUS STANDARD HCO3 23.1 MMOL/L
[2024-07-13] VITALS (69 sets, daily range): BP systolic 91–159; BP diastolic 54–82; TEMP 98.6–101.9; O2SAT 81–100
[2024-07-13 04:15] LABS: VENOUS BASE EXCESS 2.4 (-2.0-2.0); VENOUS HCO3 26.5 MMOL/L (23.0-27.0); VENOUS O2 SATURATION 67.8 % (60.0-80.0); VENOUS PARTIAL PRESSURE CO2 38.9 mmHg (38.0-50.0); VENOUS PARTIAL PRESSURE O2 36.9 mmHg (30.0-50.0); VENOUS PH 7.451 UNITS (7.330-7.430); VENOUS STANDARD HCO3 26.1 MMOL/L; VENOUS TOTAL CO2 27.7 MMOL/L (24.0-28.0)
[2024-07-13 04:55] LABS: HEMATOCRIT 28.6 % (42.0-52.0); HEMOGLOBIN 9.4 g/dl (13.5-17.5); MEAN CORPUSCULAR HEMOGLOBIN 29.8 pg (27.0-33.0); MEAN CORPUSCULAR HGB CONC 32.9 g/dl (32.0-36.5); MEAN CORPUSCULAR VOLUME 90.8 fl (80.0-96.0); PLATELET COUNT, AUTOMATED 105 10^3/uL (150-450); RED BLOOD COUNT 3.15 10^6/uL (4.30-6.10); WHITE BLOOD COUNT 7.7 10^3/uL (4.0-10.0)
[2024-07-13 05:02] LABS: ALBUMIN 1.7 G/DL (3.2-5.2); ALKALINE PHOSPHATASE 70 U/L (46-116); ALT/SGPT 24 U/L (7.0-40); AST/SGOT 31 U/L (<34); BILIRUBIN,TOTAL 0.3 MG/DL (0.3-1.2); BLOOD UREA NITROGEN 23 MG/DL (9-23); CALCIUM LEVEL 8.4 MG/DL (8.3-10.6); CARBON DIOXIDE LEVEL 25 MMOL/L (20-31); CHLORIDE LEVEL 115 MMOL/L (98-107); CREATININE FOR GFR 0.91 MG/DL (0.70-1.30); GLOMERULAR FILTRATION RATE > 60.0 (>35); GLUCOSE, FASTING 104 MG/DL (74-106); MAGNESIUM LEVEL 1.9 MG/DL (1.8-2.4); PHOSPHORUS LEVEL 2.9 MG/DL (2.4-5.1); POTASSIUM SERUM 4.2 MMOL/L (3.5-5.1); SODIUM LEVEL 144 MMOL/L (136-145); TOTAL PROTEIN 5.2 G/DL (5.7-8.2)
[2024-07-13 06:34] LABS: ATYPICAL LYMPH 1 % (0-5); LYMPHOCYTES 4 % (16-44); MONOCYTES 10 % (0-5); NEUTROPHILS 81 % (28-66)
[2024-07-13 06:35] LABS: HYPOCHROMASIA 1+; OVALOCYTES 1+; POIKILOCYTOSIS 1+
[2024-07-13 06:36] LABS: ANISOCYTOSIS 1+; PLATELET ESTIMATE DECREASED (NORMAL)
[2024-07-13] MEDS: ACETAMINOPHEN 650MG SUPP PR PRN (17:41)
[2024-07-13] MEDS: INSULIN LISPRO (NovoLOG) PER UNIT SC SCH (18:00)
[2024-07-13] MEDS: FAT EMULSION IV 250 ML IV ONE (18:05)
[2024-07-13] MEDS: METOPROLOL 5 MG/5 ML VIAL IV STA (20:29)
[2024-07-14] VITALS (43 sets, daily range): BP systolic 70–151; BP diastolic 48–78; TEMP 96.8–102.6; O2SAT 78–100
[2024-07-14] MEDS: VANCOMYCIN HCL 1,000 MG, VIAL MATE ADAPTER 1 EACH in D5W 250 ML IV SCH (04:49)
[2024-07-14 05:06] LABS: BASO % 0.2 % (0.0-1.0); EOS % 0.4 % (0.0-3.0); HEMATOCRIT 31.3 % (42.0-52.0); LYMPH # 0.3 10^3/uL (1.5-5.0); LYMPH % 2.7 % (24.0-44.0); MEAN CORPUSCULAR HEMOGLOBIN 29.2 pg (27.0-33.0); MEAN CORPUSCULAR HGB CONC 31.9 g/dl (32.0-36.5); MEAN CORPUSCULAR VOLUME 91.5 fl (80.0-96.0); MONO % 10.3 % (2.0-8.0); NEUTROPHILS # 8.1 10^3/uL (1.5-8.5); NEUTROPHILS % 84.4 % (36.0-66.0); PLATELET COUNT, AUTOMATED 124 10^3/uL (150-450); RED BLOOD COUNT 3.42 10^6/uL (4.30-6.10); WHITE BLOOD COUNT 9.6 10^3/uL (4.0-10.0)
[2024-07-14] MEDS: KETOROLAC 30 MG/ML 1ML VIAL IV ONE (05:38)
[2024-07-14 05:52] LABS: ALBUMIN 1.8 G/DL (3.2-5.2); ALKALINE PHOSPHATASE 81 U/L (46-116); ALT/SGPT 26 U/L (7.0-40); AST/SGOT 38 U/L (<34); BILIRUBIN,TOTAL 0.3 MG/DL (0.3-1.2); BLOOD UREA NITROGEN 24 MG/DL (9-23); CALCIUM LEVEL 8.6 MG/DL (8.3-10.6); CARBON DIOXIDE LEVEL 24 MMOL/L (20-31); CHLORIDE LEVEL 112 MMOL/L (98-107); CREATININE FOR GFR 0.93 MG/DL (0.70-1.30); GLOMERULAR FILTRATION RATE > 60.0 (>35); GLUCOSE, FASTING 111 MG/DL (74-106); POTASSIUM SERUM 3.9 MMOL/L (3.5-5.1); SODIUM LEVEL 143 MMOL/L (136-145); TOTAL PROTEIN 5.6 G/DL (5.7-8.2)
[2024-07-14 06:13] LABS: PROCALCITONIN 3.44 ng/ml
[2024-07-14] MEDS: VANCOMYCIN HCL 500 MG in D5W MINI-BAG PLUS 100 ML IV ONE (06:23)
[2024-07-14] MEDS: NS 500 ML IV ONE (07:55)
[2024-07-14] MEDS: MEROPENEM INJ 1 GM in IV 1 EA IV ONE (08:23)
[2024-07-14] MEDS: NYSTATIN 500,000U/5ML SUSP UDC SS SCH (12:00)
[2024-07-14] MEDS ORDERED: LORazepam 1 MG TAB PO PRN (13:10)
[2024-07-14] MEDS ORDERED: BISACODYL 10MG SUPP PR PRN (13:10)
[2024-07-14] MEDS ORDERED: ACETAMINOPHEN 650MG SUPP PR PRN (13:10)
[2024-07-14] MEDS ORDERED: ONDANSETRON 4MG ORAL DISINTEGRATING TAB PO PRN (13:10)
[2024-07-14] MEDS: MORPHINE 10MG/0.5ML ORAL CONCENTRATE SOLUTION U/D SL PRN (14:54)
[2024-07-14] MEDS ORDERED: LORazepam 2 MG/ML 1ML VIAL IV PRN (14:55)
[2024-07-14] MEDS: SCOPOLAMINE 1MG TRANSDERMAL PATCH TOP PRN (15:14)
[2024-07-14] MEDS ORDERED: ATROPINE SULFATE 1% OPHTH SOLN 2ML BTL SL PRN (15:35)
[2024-07-14] MEDS ORDERED: SALIVA SUBSTITUTE(MOUTHKOTE) BTL MT PRN (15:35)
[2024-07-14] MEDS ORDERED: ARTIFICIAL TEARS DROPS 15ML BTL (VISINE DRY RELIEF) OU PRN (15:35)
[2024-07-14] MEDS ORDERED: MEROPENEM INJ 1 GM in IV 1 EA IV SCH (16:00)
[2024-07-14] MEDS: MORPHINE SULF IN 0.9% NACL 100 MG in IV 1 EA IV SCH (16:09)
[2024-07-14] MEDS ORDERED: INSULIN LISPRO (NovoLOG) PER UNIT SC SCH (18:00)
[2024-07-14] MEDS ORDERED: FAT EMULSION IV 250 ML IV ONE (18:00)
[2024-07-14] MEDS: LORazepam 2 MG/ML 1ML VIAL IV PRN (20:01)
[2024-07-14] MEDS: MORPHINE 2 MG/ML 1ML VIAL IV PRN (20:13)
== END 2024-07-14 21:29 | disposition expired | DRG 314 ==
LOC: M ED 06:05 → M ED INP 10:02 → M ICU 13:33 → M MS5PR 07-14 18:14
PROVIDERS: ADMIT Internal Medicine Pulmonary Disease; ATTEND Hospitalist
DX: T80.211A Bloodstream infection due to central venous catheter, initial encounter (principal); G93.41 Metabolic encephalopathy; E43 Unspecified severe protein-calorie malnutrition; J96.01 Acute respiratory failure with hypoxia; G06.0 Intracranial abscess and granuloma; G04.90 Encephalitis and encephalomyelitis, unspecified; A40.9 Streptococcal sepsis, unspecified; R65.20 Severe sepsis without septic shock; N17.9 Acute kidney failure, unspecified; E87.29 Other acidosis; C85.90 Non-Hodgkin lymphoma, unspecified, unspecified site; C78.6 Secondary malignant neoplasm of retroperitoneum and peritoneum; E87.4 Mixed disorder of acid-base balance; J43.9 Emphysema, unspecified; G40.909 Epilepsy, unspecified, not intractable, without status epilepticus; I12.9 Hypertensive chronic kidney disease with stage 1 through stage 4 chronic kidney disease, or unspecified chronic kidney disease; D69.6 Thrombocytopenia, unspecified; D64.9 Anemia, unspecified; D70.9 Neutropenia, unspecified; Z66 Do not resuscitate; Z88.0 Allergy status to penicillin; Z79.899 Other long term (current) drug therapy; Z79.82 Long term (current) use of aspirin; Z92.21 Personal history of antineoplastic chemotherapy; F17.200 Nicotine dependence, unspecified, uncomplicated; M19.90 Unspecified osteoarthritis, unspecified site; E87.6 Hypokalemia; Z85.46 Personal history of malignant neoplasm of prostate; N18.9 Chronic kidney disease, unspecified; Z51.5 Encounter for palliative care; Y83.8 Other surgical procedures as the cause of abnormal reaction of the patient, or of later complication, without mention of misadventure at the time of the procedure